=== PATIENT | female | born 1980 | race Caucasian/White ===

== ENCOUNTER 2019-01-26 08:12 | Emergency (ER) | payer OTHER ==
[2019-01-26 08:21] VITALS: BP 117/73; PULSE 82; RESP 18; TEMP 97.9
--- NOTE | 2019-01-26 08:41 | XR ---
EXAMINATION TYPE: XR shoulder complete RT DATE OF EXAM: 01/26/2019 COMPARISON: NONE HISTORY: Pain TECHNIQUE: Three views are submitted. FINDINGS: The osseous structures are intact. Chronic deformity of the clavicle. There is no acute fracture or dislocation. The AC joint is maintained. IMPRESSION: 1. No acute process.
[2019-01-26] MEDS ORDERED: HYDROcodone/APAP 7.5-325MG 1 EACH TAB PO ONE (08:45)
--- NOTE | 2019-01-26 09:03 | ED ---
Extremity Problem HPI - General Chief complaint: Extremity Problem,Nontraumatic Stated complaint: Shoulder pain Time Seen by Provider: 01/26/19 08:28 Source: patient Mode of arrival: ambulatory Limitations: no limitations - History of Present Illness Initial comments: 38 year old female with no past medical history presenting to the emergency department today for evaluation of right shoulder pain. Patient states 2 mornings ago she woke up with a stiff right shoulder and pain with range of motion. She states it is tender to palpation over the anterior shoulder. 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 She states that she has not had any specific injury that she can recall. Patient denies any redness or swelling of the shoulder or upper extremity she denies a fever or flulike symptoms. Patient denies any falls or direct trauma. Patient denies chest pain shortness of breath remaining ROS (-). Upon arrival patient appears well no signs of acute distress. Nontoxic. - Related Data Home Medications Medication Instructions Recorded Confirmed Ibuprofen [Motrin Ib] 600 mg PO Q6H PRN 01/26/19 01/26/19 Allergies Allergy/AdvReac Type Severity Reaction Status Date / Time latex Allergy Rash/Hives Verified 01/26/19 09:08 Review of Systems ROS Statement: Those systems with pertinent positive or pertinent negative responses have been documented in the HPI. ROS Other: All systems not noted in ROS Statement are negative. Past Medical History Past Medical History: No Reported History History of Any Multi-Drug Resistant Organisms: None Reported Past Surgical History: Section Additional Past Surgical History / Comment(s): colonoscopy, partial hysterectomy Past Psychological History: No Psychological Hx Reported Smoking Status: Current every day smoker Past Alcohol Use History: Occasional Past Drug Use History: Marijuana General Exam - General Exam Comments Initial Comments: General: The patient is awake and alert, in no distress, and does not appear acutely ill. Eye: Pupils are equal, round and reactive to light, extra-ocular movements are intact. No nystagmus. There is normal conjunctiva bilaterally. No signs of icterus. Cardiovascular: There is a regular rate and rhythm. No murmur, rub or gallop is appreciated. Respiratory: Lungs are clear to auscultation, respirations are non-labored, breath sounds are equal. No wheezes, stridor, rales, or rhonchi. Musculoskeletal: Normal inspection of the skin of the shoulder no rashes or lesions. Patient has pain with overhead range of motion limited secondary to pain. Patient is tenderness to palpation of the before meals joint. Sensation intact both proximal distal to area of injury. Patient is able to the okay fingers crossed thumbs-up and oppose the small digit and thumb without difficulty. Strength distal to elbow intact refuses to strength test at shoulder. Radial pulses equal bilaterally 2+. Neurological: A&O x 3. CN II-XII intact grossly, There are no obvious motor or sensory deficits. Coordination appears grossly intact. Speech is normal. Skin: Skin is warm and dry and no rashes or lesions are noted. Psychiatric: Cooperative, appropriate mood & affect, normal judgment. Limitations: no limitations Course Vital Signs 01/26/19 08:18 Temperature 97.9 F Pulse Rate 82 Respiratory 18 Rate Blood Pressure 117/73 O2 Sat by Pulse 97 Oximetry Medical Decision Making - Medical Decision Making 38-year-old female presenting to the ER for evaluation of right shoulder pain atraumatic. 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 Patient has obvious reproducible pain to the right shoulder and limited overhead range of motion. Neurovascularly intact. Imaging studies negative for acute osseous process. Patient is placed in a sling for comfort instructed to take ibuprofen and Tylenol [id number] for pain, left shoulder and presented to primary care provider for further evaluation. If symptoms are persistent I recommended orthopedic evaluation. Discussed case maintain provider and patient was discharged appearing well agreeable care plan and return parameters. Disposition Clinical Impression: Pain of right shoulder joint on movement, Decreased ROM of right shoulder Disposition: HOME SELF-CARE Condition: Good Instructions (If sedation given, give patient instructions): Shoulder Pain (ED) Additional Instructions: Please use medication as discussed. Please follow-up with family doctor in the next 2 days, if symptoms persist please seek referral to orthopedic surgeon as discussed. Please return to emergency room if the symptoms increase or worsen or for any other concerns. Is patient prescribed a controlled substance at d/c from ED?: No Referrals: None,Stated [Primary Care Provider] - 1-2 days [facility] - 1-2 days Time of Disposition: 09:02
== END 2019-01-26 09:15 | disposition home or self-care (01) ==
LOC: EC 08:12
DX: M25.511 Pain in right shoulder (principal); F17.200 Nicotine dependence, unspecified, uncomplicated; Z91.040 Latex allergy status
CPT/HCPCS: 99283

== ENCOUNTER 2019-09-20 16:07 | Emergency (ER) | payer OTHER ==
[2019-09-20 16:15] VITALS: BP 137/92; PULSE 98; RESP 18; TEMP 97.9
[2019-09-20] MEDS ORDERED: PROPARACAINE 0.5% OPHTH DROPS 15 ML BTL LEFT EYE STA (16:17)
[2019-09-20] MEDS ORDERED: FLUORESCEIN STRIPS 1 MG STRIP LEFT EYE ONE (16:17)
[2019-09-20] MEDS ORDERED: cefTRIAXone 250 MG VIAL IM STA (16:52)
[2019-09-20] MEDS ORDERED: AZITHROMYCIN 500 MG TAB PO STA (16:53)
--- NOTE | 2019-09-20 16:59 | ED ---
Eye Problem HPI - General Chief complaint: Eye Problems Stated complaint: [facility]-Eye pain Time Seen by Provider: 09/20/19 16:17 Source: patient Mode of arrival: ambulatory Limitations: no limitations - History of Present Illness Initial comments: 38-year-old female presenting today for chief complaints of left eye irritation. 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 Patient states that she has gotten plastic in her eye before and states that this feels similar. She states she woke up with a red eye that felt more irritated despite her trying to rinse and rub her eye yesterday. Denies headache, admits to eye pain, redness, watering causing blurred vision and photophobia. Patient denies external eye swelling. Denies vomiting. Denies additional complaints. Pt also concerned as her sexual partner stated he had tested + for chlamydia. Patient denies any symptoms. Patient states she does not want this to be part of workman's comp. - Related Data Home Medications Medication Instructions Recorded Confirmed Ibuprofen [Motrin Ib] 600 mg PO Q6H PRN 01/26/19 01/26/19 Previous Rx's Medication Instructions Recorded Erythromycin Ophth Oint [Romycin 1 applic LEFT EYE QID 5 Days #1 09/20/19 Ophth Oint] tube Allergies Allergy/AdvReac Type Severity Reaction Status Date / Time latex Allergy Rash/Hives Verified 09/20/19 16:11 Review of Systems ROS Statement: Those systems with pertinent positive or pertinent negative responses have been documented in the HPI. ROS Other: All systems not noted in ROS Statement are negative. Past Medical History Past Medical History: No Reported History History of Any Multi-Drug Resistant Organisms: None Reported Past Surgical History: Section Additional Past Surgical History / Comment(s): colonoscopy, partial hysterectomy Past Psychological History: No Psychological Hx Reported Smoking Status: Current every day smoker Past Alcohol Use History: Occasional Past Drug Use History: Marijuana General Exam - General Exam Comments Initial Comments: General: The patient is awake and alert, in no distress Eye: +3 mm pupils are equal, round and reactive to light, extra-ocular movements are intact. No nystagmus. VF intact to confrontation. There is normal conjunctiva bilaterally. No signs of icterus. Upon fluorescein exam ination there is an area of uptake mid cornea at the 7 o'clock position. Relief with proparacaine. No evidence of foreign body, mild chemosis. IOP 16 OS. 18OD. Cardiovascular: There is a regular rate and rhythm. No murmur, rub or gallop is appreciated. Respiratory: Lungs are clear to auscultation, respirations are non-labored, breath sounds are equal. No wheezes, stridor, rales, or rhonchi. Gastrointestinal: Soft, non-distended, non-tender abdomen without masses or organomegaly noted. There is no rebound or guarding present. Pelvic: no discharge. odors or cervical motion tenderness. Musculoskeletal: Normal ROM, no tenderness. Strength 5/5. Sensation intact. Radial pulses equal bilaterally 2+. Neurological: A&O x 3. CN II-XII intact grossly, There are no obvious motor or sensory deficits. Coordination appears grossly intact. Speech is normal. Skin: Skin is warm and dry and no rashes or lesions are noted. Psychiatric: Cooperative, appropriate mood & affect, normal judgment. Limitations: no limitations Course Vital Signs 09/20/19 16:11 Temperature 97.9 F Pulse Rate 98 Respiratory 18 Rate Blood Pressure 137/92 O2 Sat by Pulse 99 Oximetry Medical Decision Making - Medical Decision Making 38yo presenting for left eye irriation. No FB. No FB on upper or lower lid as they were both inverted and examined. Negative [place] sign. uptake consistent with abrasion. IOP WNL. Patient placed on antibiotics. In regards to STI, treated for STI. Testing pending. No cervical motion tenderness or discharged noted. Patient agreeable to discharge at this time with [employer] follow-up as well as ophthalmology follow-up for left eye abrasion. - Lab Data Lab Results 09/20/19 Range/Units 17:11 Trichomonas Ag (Rapid) Negative (Negative) Disposition Clinical Impression: Concern about STD in female without diagnosis, Corneal abrasion, left Disposition: HOME SELF-CARE Condition: Good Instructions (If sedation given, give patient instructions): Corneal Abrasion (ED) Additional Instructions: Please use medication as discussed. Please follow-up with family doctor in the next 2 days, please follow-up with ophthalmology in next 2-3 days and OBGYN in next 1-2 weeks. Please return to emergency room if the symptoms increase or worsen or for any other concerns. Prescriptions: Erythromycin Ophth Oint [Romycin Ophth Oint] 1 applic LEFT EYE QID 5 Days #1 tube Is patient prescribed a controlled substance at d/c from ED?: No Referrals: None,Stated [Primary Care Provider] - 1-2 days Thelma Beth MD [STAFF PHYSICIAN] - 1-2 days Time of Disposition: 16:58
[2019-09-21 15:31] LABS: C. trachomatis,PCR Negative (Neg,Equiv); Chlamydia trachomatis Source Vagina; N. gonorrhoeae,PCR Negative (Neg,Equiv); Neisseria Source Vagina
== END 2019-09-20 17:38 | disposition home or self-care (01) ==
LOC: EC 16:07
DX: S05.02XA Injury of conjunctiva and corneal abrasion without foreign body, left eye, initial encounter (principal); Z71.1 Person with feared health complaint in whom no diagnosis is made; F17.200 Nicotine dependence, unspecified, uncomplicated; Z91.040 Latex allergy status; X58.XXXA Exposure to other specified factors, initial encounter; Y92.69 Other specified industrial and construction area as the place of occurrence of the external cause; Y99.0 Civilian activity done for income or pay
CPT/HCPCS: 87808; 87491; 87591; 87070; 99283; 96372; J0696

== ENCOUNTER 2019-12-04 02:09 | Emergency (ER) | payer OTHER ==
[2019-12-04 02:27] VITALS: BP 152/87; PULSE 82; RESP 16; TEMP 97.8
--- NOTE | 2019-12-04 02:29 | ED ---
Psych HPI - General Stated Complaint: Mental Health Time Seen by Provider: 12/04/19 02:12 Source: patient Mode of arrival: ambulatory Limitations: no limitations - History of Present Illness Initial Comments: This patient is a 38-year-old woman who is brought to have psychiatric evaluation. The patient's son had phoned [phone] after the patient had stated that she hated her life. The patient denies having suicidal intent. She does admit to long-standing depressed mood. She does admit to arguing with her son jesus. She denies any previous suicidal attempts. MD Complaint: feels depressed -: hour(s) Associated Psychiatric Symptoms: depression History of same: Yes Quality: constant Improves With: none Worsens With: none Associated Symptoms: denies other symptoms - Related Data Home Medications Medication Instructions Recorded Confirmed Ibuprofen [Motrin Ib] 600 mg PO Q6H PRN 01/26/19 01/26/19 Previous Rx's Medication Instructions Recorded Erythromycin Ophth Oint [Romycin 1 applic LEFT EYE QID 5 Days #1 09/20/19 Ophth Oint] tube Allergies Allergy/AdvReac Type Severity Reaction Status Date / Time latex Allergy Rash/Hives Verified 09/20/19 16:11 Review of Systems ROS Statement: Those systems with pertinent positive or pertinent negative responses have been documented in the HPI. ROS Other: All systems not noted in ROS Statement are negative. Constitutional: Denies: fever, chills Respiratory: Denies: cough, dyspnea Cardiovascular: Denies: chest pain, syncope Gastrointestinal: Denies: abdominal pain, vomiting Musculoskeletal: Denies: back pain Skin: Denies: rash Neurological: Denies: headache, weakness Psychiatric: Reports: depression. Denies: auditory hallucinations, visual hallucinations, homicidal thoughts, suicidal thoughts Past Medical History Past Medical History: No Reported History History of Any Multi-Drug Resistant Organisms: None Reported Past Surgical History: Section Additional Past Surgical History / Comment(s): colonoscopy, partial hysterectomy Past Psychological History: No Psychological Hx Reported Past Alcohol Use History: Occasional Past Drug Use History: Marijuana General Exam General appearance: alert, in no apparent distress Head exam: Present: atraumatic, normocephalic Eye exam: Present: normal appearance. Absent: scleral icterus, conjunctival injection Respiratory exam: Present: normal lung sounds bilaterally. Absent: respiratory distress, wheezes, rales, rhonchi, stridor Cardiovascular Exam: Present: regular rate, normal rhythm, normal heart sounds. Absent: systolic murmur, diastolic murmur, rubs, gallop GI/Abdominal exam: Present: soft. Absent: distended, tenderness, guarding, rebound, rigid, mass Extremities exam: Present: normal inspection, normal capillary refill Back exam: Present: normal inspection Neurological exam: Present: alert, normal gait Psychiatric exam: Present: depressed. Absent: agitated, anxious, flat affect, manic, homicidal ideation, suicidal ideation Skin exam: Present: warm, dry, intact, normal color. Absent: rash Course Vital Signs 12/04/19 02:11 Temperature 97.8 F Pulse Rate 82 Respiratory 16 Rate Blood Pressure 152/87 O2 Sat by Pulse 98 Oximetry Disposition Clinical Impression: Mood disorder Disposition: HOME SELF-CARE Condition: Good Instructions (If sedation given, give patient instructions): Mood Disorders (ED) Is patient prescribed a controlled substance at d/c from ED?: No Referrals: None,Stated [Primary Care Provider] - 1-2 days
== END 2019-12-04 05:00 | disposition home or self-care (01) ==
LOC: EC 02:09
DX: F32.9 Major depressive disorder, single episode, unspecified (principal); Z91.040 Latex allergy status
CPT/HCPCS: 82075; 99284; 99285